=== PATIENT | female | born 1980 | race African-American/Black ===

== ENCOUNTER 2018-05-05 15:20 | Emergency (ER) | payer OTHER ==
[2018-05-05 15:27] VITALS: BP 118/76; PULSE 100; TEMP 98.8; BMI 26.9
--- NOTE | 2018-05-05 15:27 | PDOC ---
Rapid Medical Evaluation Time Seen by Provider: 05/05/18 15:24 Medical Evaluation: Allergies Allergy/AdvReac Type Severity Reaction Status Date / Time No Known Allergies Allergy Verified 11/05/11 15:27 05/05/18 15:25 The patient complains of: nasal congestion, fever, body aches, + smoker with cough On brief exam: noted nasal congestion, LCTA, vss The patient ordered for: none The patient to proceed to the ED Discharge Disposition - Diagnosis Nasal congestion - Referrals - Patient Instructions - Post Discharge Activity
--- NOTE | 2018-05-05 16:37 | PDOC ---
History of Present Illness - General Chief Complaint: Cold Symptoms Stated Complaint: COLD SYMPTOMS Time Seen by Provider: 05/05/18 15:24 - History of Present Illness Initial Comments: 05/05/18 16:34 38-year-old female presents for evaluation of upper respiratory symptoms and fever chills and night sweats 3 days. Past History - Past Medical History Allergies/Adverse Reactions: Allergies Allergy/AdvReac Type Severity Reaction Status Date / Time Penicillins Allergy Verified 05/05/18 15:27 Home Medications: Ambulatory Orders Azithromycin [Zithromax -] 250 mg PO UTDICT #6 tab 05/05/18 Asthma: No Cancer: No Cardiac Disorders: No CVA: No COPD: No Diabetes: No GI Disorders: No Disorders: No HTN: No Hypercholesterolemia: No Liver Disease: No Seizures: No Thyroid Disease: No - Suicide/Smoking/Psychosocial Hx Smoking Status: Yes Smoking History: Current every day smoker Number of Cigarettes Smoked Daily: 5 Information on smoking cessation initiated: No Hx Alcohol Use: No Drug/Substance Use Hx: Yes (none x years) Substance Use Type: Cocaine, Marijuana Hx Substance Use Treatment: Yes (rehab) Review of Systems - Review of Systems Constitutional: Yes: Chills, Fever, Malaise, Night Sweats Respiratory: Yes: Cough All Other Systems: Reviewed and Negative *Physical Exam - Vital Signs Last Vital Signs Temp Pulse Resp BP Pulse Ox 98.8 F 100 H 18 118/76 98 05/05/18 15:24 05/05/18 15:24 05/05/18 15:24 05/05/18 15:24 05/05/18 15:24 - Physical Exam Comments: HEAD: NC/AT EYES: Conjuntiva clear Ears: Canals and TM's normal NOSE: No d/c THROAT: Moist mucous membrances, oral pharanx clear, uvula midline NECK: Supple without adenopathy CARDIAC: S1 S2 LUNGS: Mild rhonchi at bilateral bases otherwise clear ABDOMEN: Soft NT ND MS: Full ROM in all joints without edema NEUROLOGIC: No gross sensory or motor deficits, NVID SKIN: Normal color and temperature no lesions or rashes 05/05/18 16:35 Medical Decision Making - Medical Decision Making I will treat her for bronchitis with Z-Geoff, follow-up with PCP in one to 2 days. 05/05/18 16:35 *DC/Admit/Observation/Transfer Diagnosis at time of Disposition: Nasal congestion, Bronchitis - Discharge Dispostion Disposition: HOME Condition at time of disposition: Stable Decision to Admit order: No - Prescriptions Prescriptions: Azithromycin [Zithromax -] 250 mg PO UTDICT #6 tab - Referrals Referrals: Liu Iqbal [Non Staff, Medical] - - Patient Instructions Printed Discharge Instructions: Acute Bronchitis, DI for Acute Bronchitis Additional Instructions: Please take the antibiotics as directed. Return to the emergency room should symptoms worsen ago and resolved please follow-up with the primary care physician I recommended for you in 1-2 days if you have a primary care physician of your [place] may follow-up with your own doctor - Post Discharge Activity
== END 2018-05-05 16:39 | disposition home or self-care (01) ==
LOC: JERFT 15:20
DX: J40 Bronchitis, not specified as acute or chronic (principal); R09.81 Nasal congestion; F17.210 Nicotine dependence, cigarettes, uncomplicated
CPT/HCPCS: 99281-25

== ENCOUNTER 2018-11-24 13:44 | Emergency (ER) | payer OTHER ==
[2018-11-24 13:54] VITALS: BP 111/61; PULSE 71; TEMP 97.9; BMI 28.4
--- NOTE | 2018-11-24 15:23 | PDOC ---
History of Present Illness - General Chief Complaint: Cold Symptoms Stated Complaint: FLU SYMPTOMS Time Seen by Provider: 11/24/18 14:56 History Source: Patient Exam Limitations: No Limitations Past History - Travel Traveled outside of the country in the last 30 days: No Close contact w/someone who was outside of country & ill: No - Past Medical History Allergies/Adverse Reactions: Allergies Allergy/AdvReac Type Severity Reaction Status Date / Time Penicillins Allergy Verified 11/24/18 13:51 Home Medications: Ambulatory Orders Azithromycin [Zithromax -] 250 mg PO UTDICT #6 tab 05/05/18 Fluticasone Prop 0.05% Nasal [Flonase -] 1 - 2 spray NS DAILY #1 spray.pump 08/14 Ibuprofen 600 mg PO Q6H #30 tablet 11/24/18 Loratadine [Claritin -] 10 mg PO DAILY #30 tablet 11/24/18 Asthma: No Cancer: No Cardiac Disorders: No CVA: No COPD: No Diabetes: No GI Disorders: No Disorders: No HTN: No Hypercholesterolemia: No Liver Disease: No Seizures: No Thyroid Disease: No Other medical history: HERNIATED DISC - Immunization History Immunization Up to Date: Yes - Suicide/Smoking/Psychosocial Hx Smoking Status: Yes Smoking History: Current every day smoker Number of Cigarettes Smoked Daily: 5 Information on smoking cessation initiated: No Hx Alcohol Use: No Drug/Substance Use Hx: No Substance Use Type: Cocaine, Marijuana Hx Substance Use Treatment: Yes (rehab) Review of Systems - Review of Systems Able to Perform ROS?: Yes Comments:: 11/24/18 15:23 CONSTITUTIONAL: Present: Fever, chills, body aches Absent: diaphoresis, generalized weakness, malaise, loss of appetite HEENT: Present: rhinorrhea, nasal congestion, throat pain. Absent: difficulty swallowing, mouth swelling, ear pain, eye pain, visual Changes CARDIOVASCULAR: Absent: chest pain, loss of consciousness, palpitations, irregular heart rate, peripheral edema RESPIRATORY: Absent: cough, shortness of breath, dyspnea with exertion, orthopnea, wheezing, stridor, hemoptysis GASTROINTESTINAL: Absent: abdominal pain, abdominal distension, nausea, vomiting, diarrhea, constipation, melena, hematochezia SKIN: Absent: rash, itching, pallor NEUROLOGIC: Present: headache Absent: focal weakness or paresthesias, dizziness, unsteady gait, seizure, mental status changes, bladder or bowel incontinence Is the patient limited Japanese proficient: No *Physical Exam - Vital Signs Last Vital Signs Temp Pulse Resp BP Pulse Ox 97.9 F 71 18 111/61 100 11/24/18 13:52 11/24/18 13:52 11/24/18 13:52 11/24/18 13:52 11/24/18 13:52 - Physical Exam Comments: 11/24/18 15:40 GENERAL: Well developed, well nourished. Awake and alert. No acute distress. HEENT: Normocephalic, atraumatic. PERRLA, EOMI. No conjunctival pallor. Sclera are non- icteric. Moist mucous membranes. Oropharynx is clear. NECK: Supple. Full ROM. No JVD. Carotid pulses 2+ and symmetric, without bruits. No thyromegaly. No lymphadenopathy. CARDIOVASCULAR: Regular rate and rhythm. No murmurs, rubs, or gallops. Distal pulses are 2+ and symmetric. PULMONARY: No evidence of respiratory distress. Lungs clear to auscultation bilaterally. No wheezing, rales or rhonchi. ABDOMINAL: Soft. Non-tender. Non-distended. No rebound or guarding. No organomegaly. Normoactive bowel sounds. MUSCULOSKELETAL Normal range of motion at all joints. No bony deformities or tenderness. No CVA tenderness. EXTREMITIES: No cyanosis. No clubbing. No edema. No calf tenderness. SKIN: Warm and dry. Normal capillary refill. No rashes. No jaundice. NEUROLOGICAL: Alert, awake, appropriate. Cranial nerves 2-12 intact. No deficits to light touch and temperature in face, upper extremities and lower extremities. No motor deficits in the in face, upper extremities and lower extremities. Normoreflexic in the upper and lower extremities. Normal speech. Toes are down- going bilaterally. Gait is normal without ataxia. PSYCHIATRIC: Cooperative. Good eye contact. Appropriate mood and affect. Medical Decision Making - Medical Decision Making 11/24/18 15:41 the patient is a 38-year-old female with no past medical history who presents to the ER with 4 days of sore throat, nasal congestion, headache and body aches. She states that she has been taking NyQuil and DayQuil at home with some relief of her symptoms. She also admits to associated ear fullness. She states she had a fever of 102 Fahrenheit 3 days ago. Patient is currently afebrile. Denies chills, chest pain, difficulty breathing, shortness of breath , nausea, vomiting or diarrhea. A/P: Upper respiratory illness On exam lungs are clear to auscultation bilaterally, heart with regular rate and rhythm, S1-S2 present no murmurs rubs or gallops. Ears are clear with no evidence of AOM, throat is without erythema, exudate or edema. Centor criteria is a 1 will defer swab We will treat with supportive therapy and recommend PCP follow-up. Discharge home I discussed the physical exam findings, ancillary test results and final diagnoses with the patient. I answered all of the patient's questions. The patient was satisfied with the care received and felt comfortable with the discharge plan and treatment plan. The Patient agrees to follow up with the primary care physician/specialist within 24-72 hours. Return precautions were given. *DC/Admit/Observation/Transfer Diagnosis at time of Disposition: Upper respiratory infection Qualifiers: URI type: unspecified viral URI Qualified Code(s): J06.9 - Acute upper respiratory infection, unspecified - Discharge Dispostion Disposition: HOME Condition at time of disposition: Stable Decision to Admit order: No - Prescriptions Prescriptions: Fluticasone Prop 0.05% Nasal [Flonase -] 1 - 2 spray NS DAILY #1 spray.pump Ibuprofen 600 mg PO Q6H #30 tablet Loratadine [Claritin -] 10 mg PO DAILY #30 tablet - Referrals Referrals: Ken Jones MD [Staff Physician] - - Patient Instructions Printed Discharge Instructions: DI for Common Cold Additional Instructions: You have an upper respiratory infection, or the common cold. Please take Motrin 800 mg every 8 hours as needed for pain not to exceed 3000 mg a day. Drink plenty of fluids. Cough drops and warm tea may help your symptoms as well. Please follow up with her primary care doctor this week. Return to the emergency department if you have difficulty breathing, shortness of breath, worsening pain, nausea, vomiting or if you have any changes in your symptoms - Post Discharge Activity Forms/Work/School Notes: Back to Work
[2018-11-24] MEDS ORDERED: IBUPROFEN 600 MG TABLET (FP) PO ONE ×2 (15:26→15:28)
== END 2018-11-24 15:31 | disposition home or self-care (01) ==
LOC: JERFT 13:44
DX: J06.9 Acute upper respiratory infection, unspecified (principal); F17.210 Nicotine dependence, cigarettes, uncomplicated
CPT/HCPCS: 99281-25

== ENCOUNTER 2021-05-24 10:55 | Emergency (ER) | payer OTHER ==
[2021-05-24 11:14] VITALS: BP 128/80; PULSE 69; TEMP 97.9; BMI 30.1
[2021-05-25 10:07] LABS: SARS-CoV-2 NAA Not Detected (Not Detected)
== END 2021-05-24 12:31 | disposition home or self-care (01) ==
LOC: JER 10:55 → JERFT 10:55
DX: L02.412 Cutaneous abscess of left axilla (principal); M25.532 Pain in left wrist; S63.502A Unspecified sprain of left wrist, initial encounter
CPT/HCPCS: 73110-TC-LT-FY; 73130-TC-LT-FY; 99284-25; C9803; U0003; U0005

== ENCOUNTER 2021-06-25 04:21 | Day surgery (SDC) | payer OTHER ==
[2021-05-27 13:22] VITALS: BMI 29.7
[2021-06-25] MEDS ORDERED: DEXAMETHASONE SOD PHOSPHATE 4 MG/1 ML VIAL ONE (07:31)
[2021-06-25] MEDS ORDERED: DEXAMETHASONE SOD PHOSPHATE 10 MG/1 ML VIAL ONE (07:31)
[2021-06-25] MEDS ORDERED: LIDOCAINE HCL 1%, 10 MG/ML (20ML VIAL) ONE (07:32)
[2021-06-25] MEDS ORDERED: MIDAZOLAM HCL 2 MG/2 ML SINGLE DOSE VIAL ONE ×3 (08:35→08:56)
[2021-06-25] MEDS ORDERED: LIDOCAINE HCL 1% PRESERVATIVE FREE - 30ML VIAL EP ONE (08:56)
[2021-06-25] MEDS ORDERED: LIDOCAINE HCL 1%, 10 MG/ML (20ML VIAL) PNB ONE (08:56)
[2021-06-25] MEDS ORDERED: DEXAMETHASONE SOD PHOSPHATE 10 MG/1 ML VIAL IVPUSH ONE (08:57)
[2021-06-25] MEDS ORDERED: DEXAMETHASONE SOD PHOSPHATE 10 MG/1 ML VIAL IM ONE (08:57)
[2021-06-25] MEDS ORDERED: IOHEXOL 180 MG/1 ML ML IJ ONE (08:59)
[2021-06-25 09:30] VITALS: TEMP 97.7
[2021-06-25 11:30] VITALS: BP 110/70; PULSE 60
== END 2021-06-25 11:20 | disposition home or self-care (01) ==
LOC: JASU-SURG 04:21
PROVIDERS: ATTEND Pain Medicine Pain Medicine
PROC: 3E0R33Z Introduction of Anti-inflammatory into Spinal Canal, Percutaneous Approach (ICD-10-PCS; 2021-06-25)
PROC: 3E0R3BZ Introduction of Anesthetic Agent into Spinal Canal, Percutaneous Approach (ICD-10-PCS; principal; 2021-06-25 08:00)
DX: M54.16 Radiculopathy, lumbar region (principal)
CPT/HCPCS: 76000-TC-FY; 81025; J1100

== ENCOUNTER 2021-08-27 04:32 | Day surgery (SDC) | payer OTHER ==
[2021-08-23 17:28] VITALS: BMI 29.6
[2021-08-27] MEDS ORDERED: TRIAMCINOLONE ACET 40MG/1ML VIAL ONE (07:28)
[2021-08-27] MEDS ORDERED: LIDOCAINE HCL/PF 1% SDV 5ML VIAL ONE (07:28)
[2021-08-27] MEDS ORDERED: BUPIVACAINE HCL/PF 0.5% (5MG/ML) 10 ML VIAL ONE (07:29)
[2021-08-27] MEDS ORDERED: MIDAZOLAM HCL 2 MG/2 ML SINGLE DOSE VIAL ONE ×2 (09:01→09:16)
[2021-08-27] MEDS ORDERED: PROPOFOL 20 ML ONE ×2 (09:20)
[2021-08-27] MEDS ORDERED: LIDOCAINE HCL 1% PRESERVATIVE FREE - 30ML VIAL IJ ONE (09:24)
[2021-08-27] MEDS ORDERED: TRIAMCINOLONE ACET 40MG/1ML VIAL IM ONE (09:26)
[2021-08-27] MEDS ORDERED: BUPIVACAINE HCL/PF 0.5% (5MG/ML) 10 ML VIAL IJ ONE (09:26)
[2021-08-27 10:53] VITALS: BP 112/50; PULSE 64; TEMP 97.2
== END 2021-08-27 11:22 | disposition home or self-care (01) ==
LOC: JASU-SURG 04:32
PROVIDERS: ATTEND Pain Medicine Pain Medicine
PROC: 3E0U3BZ Introduction of Anesthetic Agent into Joints, Percutaneous Approach (ICD-10-PCS; 2021-08-27)
PROC: 3E0U33Z Introduction of Anti-inflammatory into Joints, Percutaneous Approach (ICD-10-PCS; principal; 2021-08-27 08:30)
DX: M53.3 Sacrococcygeal disorders, not elsewhere classified (principal)
CPT/HCPCS: 76000-TC-FY; 81025

== ENCOUNTER → 2022-03-11 | Day surgery (SDC) | payer OTHER ==
[2022-02-28 14:15] VITALS: BMI 29.7
[~2022-03-11] MED LIST: BUPIVACAINE HCL/PF 0.5% (5MG/ML) 10 ML VIAL ONE; TRIAMCINOLONE ACET 40MG/1ML VIAL ONE
== END | disposition home or self-care (01) ==
LOC: JASU-SURG 04:30
PROVIDERS: ATTEND Pain Medicine Pain Medicine
DX: Z53.8 Procedure and treatment not carried out for other reasons (principal)

== ENCOUNTER 2022-03-25 04:30 | Day surgery (SDC) | payer OTHER ==
[2022-03-24 15:26] VITALS: BMI 29.7
[2022-03-25] MEDS ORDERED: TRIAMCINOLONE ACET 40MG/1ML VIAL ONE (07:18)
[2022-03-25] MEDS ORDERED: LIDOCAINE HCL/PF 1% SDV 5ML VIAL ONE (07:18)
[2022-03-25] MEDS ORDERED: BUPIVACAINE HCL/PF 0.5% (5MG/ML) 10 ML VIAL ONE (07:18)
[2022-03-25] MEDS ORDERED: LIDOCAINE HCL 1% PRESERVATIVE FREE - 30ML VIAL IJ ONE ×3 (13:18→14:23)
[2022-03-25] MEDS ORDERED: DEXAMETHASONE SOD PHOSPHATE 10 MG/1 ML VIAL IVPUSH ONE (13:18)
[2022-03-25] MEDS ORDERED: BUPIVACAINE HCL/PF 0.5% (5 MG/ML) 30 ML VIAL IJ ONE ×2 (14:24)
[2022-03-25] MEDS ORDERED: TRIAMCINOLONE ACET 40MG/1ML VIAL IM ONE (14:24)
[2022-03-25 15:14] VITALS: BP 92/63; PULSE 65; RESP 16; TEMP 97.7
== END 2022-03-25 15:45 | disposition home or self-care (01) ==
LOC: JASU-SURG 04:30
PROVIDERS: ATTEND Pain Medicine Pain Medicine
PROC: 3E0U3BZ Introduction of Anesthetic Agent into Joints, Percutaneous Approach (ICD-10-PCS; 2022-03-25)
PROC: 3E0U33Z Introduction of Anti-inflammatory into Joints, Percutaneous Approach (ICD-10-PCS; principal; 2022-03-25 13:30)
DX: M53.3 Sacrococcygeal disorders, not elsewhere classified (principal)
CPT/HCPCS: 76000-TC-FY; 81025; J1100

== ENCOUNTER 2022-06-16 05:38 | Day surgery (SDC) | payer OTHER ==
[2022-06-13 14:23] VITALS: BMI 30.5
[2022-06-16] MEDS ORDERED: BUPIVACAINE HCL/PF 0.25% (2.5MG/ML) 10 ML VIAL ONE (13:40)
[2022-06-16] MEDS ORDERED: DEXAMETHASONE SOD PHOSPHATE 4 MG/1 ML VIAL ONE (15:37)
[2022-06-16] MEDS ORDERED: KETOROLAC TROMETHAMINE 30 MG/1 ML VIAL ONE (15:37)
[2022-06-16] MEDS ORDERED: ONDANSETRON 4 MG/2 ML VIAL ONE (15:37)
[2022-06-16] MEDS ORDERED: KETAMINE HCL 500 MG/10 ML VIAL ONE (15:37)
[2022-06-16] MEDS ORDERED: PROPOFOL 20 ML ONE (15:37)
[2022-06-16] MEDS ORDERED: MIDAZOLAM HCL 2 MG/2 ML SINGLE DOSE VIAL ONE (15:37)
[2022-06-16] MEDS ORDERED: LIDOCAINE HCL 2% 100 MG/5 ML DISP.SYRIN ONE (15:52)
[2022-06-16] MEDS ORDERED: FENTANYL CITRATE/PF 50 MCG/ML VIAL ONE ×3 (16:01→17:20)
[2022-06-16] MEDS ORDERED: ceFAZolin SODIUM 1 GM VIAL ONE ×2 (16:05)
[2022-06-16] MEDS ORDERED: ceFAZolin SODIUM 1 GM VIAL IVPB ONE (16:10)
[2022-06-16] MEDS ORDERED: BUPIVACAINE HCL/PF 0.25% (2.5MG/ML) 10 ML VIAL IJ ONE ×2 (16:19)
[2022-06-16] MEDS ORDERED: BACITRACIN 15 GM TUBE TOPICAL OINTMENT ONE (16:41)
[2022-06-16] MEDS ORDERED: oxyCODONE HCL 5 MG TABLET PO PRN (16:59)
[2022-06-16] MEDS ORDERED: ONDANSETRON 4 MG/2 ML VIAL IVPUSH PRN (16:59)
[2022-06-16] MEDS ORDERED: LACTATED RINGERS SOLUTION 1,000 ML IV SCH (17:00)
[2022-06-16] MEDS: FENTANYL CITRATE/PF 50 MCG/ML VIAL IVPUSH PRN ×4 (17:13→17:28)
[2022-06-16 18:50] VITALS: RESP 18
[2022-06-16] MEDS ORDERED: oxyCODONE HCL 5 MG TABLET ONE (19:12)
[2022-06-16 19:40] VITALS: BP 131/73; PULSE 63; TEMP 98.2
== END 2022-06-16 20:05 | disposition home or self-care (01) ==
LOC: JASU-SURG 05:38
PROVIDERS: ATTEND Surgery
PROC: 0JBF0ZZ Excision of Left Upper Arm Subcutaneous Tissue and Fascia, Open Approach (ICD-10-PCS; principal; 2022-06-16 14:00)
DX: L72.3 Sebaceous cyst (principal)
CPT/HCPCS: 81025; 88304-TC; 94760

== ENCOUNTER 2022-11-10 21:14 | Emergency (ER) | payer OTHER ==
[2022-11-10 21:22] VITALS: BP 130/75; PULSE 61; RESP 18; TEMP 98; BMI 30.8
[2022-11-10] MEDS ORDERED: ACETAMINOPHEN 500 MG TABLET (FP) PO ONE (21:42)
[2022-11-10] MEDS ORDERED: IBUPROFEN 600 MG TABLET (FP) PO ONE ×2 (21:42→21:43)
[2022-11-10] MEDS ORDERED: ACETAMINOPHEN 500 MG TABLET (FP) ONE (21:43)
== END 2022-11-10 22:39 | disposition home or self-care (01) ==
LOC: JER 21:14
DX: S99.911A Unspecified injury of right ankle, initial encounter (principal); M25.571 Pain in right ankle and joints of right foot; W18.40XA Slipping, tripping and stumbling without falling, unspecified, initial encounter
CPT/HCPCS: 73610-TC-RT-FY; 99283-25

== ENCOUNTER 2022-11-25 16:25 | Emergency (ER) | payer OTHER ==
[2022-11-25 16:45] VITALS: RESP 18; TEMP 97.9; BMI 30.7
[2022-11-25] MEDS ORDERED: ALBUTEROL SO4 2.5/IPRATROPIUM 0.5 INH SOL 3 ML VIAL.NEB. NEB ONE ×2 (17:53→17:57)
[2022-11-25] MEDS ORDERED: SODIUM CHLORIDE 1,000 ML IV STA (17:59)
[2022-11-25] MEDS ORDERED: ACETAMINOPHEN 1000 MG/100 ML BAG IVPB ONE (17:59)
[2022-11-25] MEDS ORDERED: ACETAMINOPHEN INJECTION 100 ML IVPB ONE (18:26)
[2022-11-25 19:20] LABS: BASO % 0.6 % (0-2.0); EOS % 0.5 % (0-4.5); HEMATOCRIT 43.2 % (32.4-45.2); HEMOGLOBIN 14.9 GM/dL (10.7-15.3); LYMPH % 55.2 % (8-40); MCH 30.2 pg (25.7-33.7); MCHC 34.4 g/dl (32.0-36.0); MEAN CELL VOLUME 87.8 fl (80-96); MEAN PLT VOLUME 9.2 fl (7.5-11.1); NEUT % 36.7 % (42.8-82.8); PLATELET COUNT 302 10^3/uL (134-434); RBC 4.92 M/mm3 (3.60-5.2); RDW 16.6 % (11.6-15.6); WHITE BLOOD COUNT 6.7 K/mm3 (4.0-10.0)
[2022-11-25 19:29] LABS: INR 1.01 (0.83-1.09); PROTHROMBIN TIME (PATIENT) 11.7 SEC (9.7-13.0)
[2022-11-25 19:32] LABS: ACTIVATED PTT 33.4 SECONDS (25.2-36.5)
[2022-11-25 19:39] LABS: CHLORIDE 107 mmol/L (98-107); SODIUM 135 mmol/L (136-145)
[2022-11-25 19:40] LABS: CALCIUM 9.4 mg/dL (8.5-10.1)
[2022-11-25 19:41] LABS: ALBUMIN 4.2 g/dl (3.4-5.0); BLOOD UREA NITROGEN 9.1 mg/dL (7-18); CO2 26 mmol/L (21-32); GLUCOSE,RANDOM 87 mg/dL (74-106); MAGNESIUM 1.9 mg/dL (1.8-2.4)
[2022-11-25 19:45] LABS: CREATININE 0.9 mg/dL (0.55-1.3); SGOT/AST 56 U/L (15-37)
[2022-11-25 19:46] LABS: BILIRUBIN,TOTAL 0.3 mg/dL (0.2-1); TOT PROT 8.6 g/dl (6.4-8.2)
[2022-11-25 19:47] LABS: ALK PHOS 96 U/L (45-117)
[2022-11-25 19:49] LABS: ANION GAP 2 MMOL/L (8-16); POTASSIUM 6.6 mmol/L (3.5-5.1); SGPT/ALT 33 U/L (13-61)
[2022-11-25] MEDS ORDERED: DEXAMETHASONE 4 MG TABLET (FP) PO ONE (19:59)
[2022-11-25] MEDS ORDERED: DEXAMETHASONE SOD PHOSPHATE 10 MG/1 ML VIAL ONE (20:03)
[2022-11-25] MEDS ORDERED: DEXAMETHASONE 4 MG TABLET (FP) ONE (20:06)
[2022-11-25 20:52] VITALS: BP 105/59; PULSE 67
== END 2022-11-25 20:49 | disposition home or self-care (01) ==
LOC: JERFT 16:25 → JER 16:25
PROC: 3E033NZ Introduction of Analgesics, Hypnotics, Sedatives into Peripheral Vein, Percutaneous Approach (ICD-10-PCS; principal; 2022-11-25)
PROC: 3E0F7GC Introduction of Other Therapeutic Substance into Respiratory Tract, Via Natural or Artificial Opening (ICD-10-PCS; 2022-11-25)
DX: R05.1 Acute cough (principal); R07.9 Chest pain, unspecified; Z20.822 Contact with and (suspected) exposure to COVID-19
CPT/HCPCS: 0241U-QW; 36415; 71046-TC-FY; 80053; 83735; 84484; 85025; 85610; 85730; 93005; 93010; 99285-25

== ENCOUNTER 2024-03-01 13:25 | Emergency (ER) | payer OTHER ==
[2024-03-01 14:38] LABS: BASO % 0.5 % (0-2.0); EOS % 6.5 % (0-4.5); HEMATOCRIT 39.7 % (32.4-45.2); HEMOGLOBIN 13.7 GM/dL (10.7-15.3); LYMPH % 42.1 % (8-40); MCH 30.9 pg (25.7-33.7); MCHC 34.4 g/dl (32.0-36.0); MEAN CELL VOLUME 89.8 fl (80-96); MEAN PLT VOLUME 8.3 fl (7.5-11.1); MONO % 12.6 % (3.8-10.2); NEUT % 38.3 % (42.8-82.8); PLATELET COUNT 235 10^3/uL (134-434); RBC 4.42 M/mm3 (3.60-5.2); RDW 14.7 % (11.6-15.6); WHITE BLOOD COUNT 4.8 K/mm3 (4.0-10.0)
[2024-03-01] MEDS: LACTATED RINGERS SOLUTION 1000 ML INFUS.BAG IV ONE (15:04)
[2024-03-01 15:10] LABS: POTASSIUM 3.8 mmol/L (3.5-5.1)
[2024-03-01 15:12] LABS: ALBUMIN 3.5 g/dl (3.4-5.0); BLOOD UREA NITROGEN 8.6 mg/dL (7-18); CALCIUM 8.7 mg/dL (8.5-10.1)
[2024-03-01 15:16] LABS: CREATININE 0.8 mg/dL (0.55-1.3)
[2024-03-01 15:17] LABS: BILIRUBIN,TOTAL 0.2 mg/dL (0.2-1); TOT PROT 6.6 g/dl (6.4-8.2)
[2024-03-01 15:31] VITALS: RESP 19; BMI 30.8
[2024-03-01 16:19] LABS: HIV INTERPRETATION NEGATIVE (NEGATIVE)
[2024-03-01 17:21] VITALS: BP 105/62; PULSE 80; TEMP 98.3
== END 2024-03-01 17:24 | disposition home or self-care (01) ==
LOC: JER 13:25
DX: R19.7 Diarrhea, unspecified (principal); R11.0 Nausea; Z20.822 Contact with and (suspected) exposure to COVID-19
CPT/HCPCS: 0241U-QW; 36415; 71046-TC-FY; 80053; 84484; 84703; 85025; 86803; 87389; 93005; 93010; 99285-25